=== PATIENT | male | born 1980 | race Caucasian/White ===

== ENCOUNTER 2022-02-09 23:33 | Emergency (ER) | payer SELFPAY ==
[~2022-02-09] VITALS: Ht 177.8 cm; Wt 118.0 kg
[2022-02-10] MEDS ORDERED: LORAZEPAM 1MG TABLET PO ONE (00:15)
[2022-02-10 04:30] VITALS: BP 141/62
[2022-02-10] MEDS ORDERED: OLAN10TA3 MT (15:42)
[2022-02-10] MEDS ORDERED: LISI10TA26 PO (15:42)
== END 2022-02-10 04:53 | disposition home or self-care (01) ==
LOC: ER 23:33
DX: F10.239 Alcohol dependence with withdrawal, unspecified (principal); Y90.9 Presence of alcohol in blood, level not specified; G40.909 Epilepsy, unspecified, not intractable, without status epilepticus; I10 Essential (primary) hypertension
CPT/HCPCS: 99283

== ENCOUNTER 2022-04-14 18:58 | Emergency (ER) | payer MEDICAID ==
[~2022-04-14] VITALS: Ht 177.8 cm; Wt 114.0 kg
[~2022-04-14 18:58] MED LIST: LISI10TA26 PO; OLAN10TA3 MT
[2022-04-14] MEDS ORDERED: SODIUM CHLORIDE 0.9% 1,000 ML IV ONE (21:30)
[2022-04-14] MEDS ORDERED: LORAZEPAM 1MG TABLET PO ONE (21:45)
[2022-04-14 21:58] LABS: BASOPHILS % 0.6 % (0.0-2.0); HEMATOCRIT. 38.6 % (42.0-52.0); HEMOGLOBIN. 12.9 g/dL (14.0-18.0); LYMPHOCYTES % 7.2 % (20.0-50.0); MEAN CORPUSCULAR HEMOGLOBIN 30.6 pg (28.0-32.0); MEAN CORPUSCULAR VOLUME 91.3 fL (80.0-94.0); MEAN PLATELET VOLUME 8.4 fl (7.4-10.4); MONOCYTES % 7.8 % (2.0-8.0); NEUTROPHILS % 84.4 % (40.0-76.0); PLATELET 233 x1000/uL (130-400); RED BLOOD CELL COUNT 4.22 mill/uL (4.7-6.1); RED CELL DISTRIBUTION WIDTH 16.5 % (11.6-14.6)
[2022-04-14 22:00] LABS: CHLORIDE 103 mEq/L (98-107)
[2022-04-14 22:09] LABS: ETHANOL BLOOD < 10 mg/dL
[2022-04-15] MEDS ORDERED: KETOROLAC 30MG/ML VIAL IM ONE (01:00)
[2022-04-15] MEDS ORDERED: LORAZEPAM 1MG TABLET PO ONE (01:00)
[2022-04-15 03:00] VITALS: BP 153/98
== END 2022-04-15 04:00 | disposition left against medical advice (07) ==
LOC: ER 18:58 → CANBEDREQ 04-15 05:25
DX: F10.239 Alcohol dependence with withdrawal, unspecified (principal); R53.1 Weakness; R10.84 Generalized abdominal pain; I10 Essential (primary) hypertension; R00.0 Tachycardia, unspecified; Y90.0 Blood alcohol level of less than 20 mg/100 ml; F12.90 Cannabis use, unspecified, uncomplicated; I25.10 Atherosclerotic heart disease of native coronary artery without angina pectoris; I25.2 Old myocardial infarction
CPT/HCPCS: 36415; 80053; 80320; 85025; 93005; 96372; 99285; J1885; J7030; G0480

== ENCOUNTER 2022-04-18 04:19 | Emergency (ER) | payer MEDICAID ==
[~2022-04-18] VITALS: Ht 165.1 cm; Wt 125.0 kg
[2022-04-18] MEDS ORDERED: DIAZEPAM 5 MG/ML 2ML CPJ IV ONE (05:30)
[2022-04-18] MEDS ORDERED: SODIUM CHLORIDE 0.9% 1,000 ML IV ONE (05:30)
[2022-04-18] MEDS ORDERED: DIAZEPAM 5 MG/ML 2ML CPJ IM ONE (06:00)
[2022-04-18 06:19] LABS: BASOPHILS % 0.7 % (0.0-2.0); EOSINOPHILS % 3.2 % (0.0-5.0); HEMATOCRIT. 36.9 % (42.0-52.0); LYMPHOCYTES % 17.8 % (20.0-50.0); MEAN CORPUSCULAR HEMOGLOBIN 30.7 pg (28.0-32.0); MEAN CORPUSCULAR VOLUME 94.4 fL (80.0-94.0); MEAN PLATELET VOLUME 8.2 fl (7.4-10.4); MONOCYTES % 10.1 % (2.0-8.0); NEUTROPHILS % 68.2 % (40.0-76.0); PLATELET 204 x1000/uL (130-400); RED CELL DISTRIBUTION WIDTH 16.6 % (11.6-14.6)
[2022-04-18 06:27] LABS: CHLORIDE 106 mEq/L (98-107)
[2022-04-18 06:34] LABS: ETHANOL BLOOD 27 mg/dL
[2022-04-18] MEDS ORDERED: L25 MT (08:28)
[2022-04-18 11:01] VITALS: BP 136/71
== END 2022-04-18 11:06 | disposition home or self-care (01) ==
LOC: ER 04:43
DX: F10.239 Alcohol dependence with withdrawal, unspecified (principal); Y90.1 Blood alcohol level of 20-39 mg/100 ml; I10 Essential (primary) hypertension; F12.10 Cannabis abuse, uncomplicated
CPT/HCPCS: 36415; 80053; 80320; 83690; 85025; 96360; 96361; 96372; 99283; J3360; J7030; G0480

== ENCOUNTER 2022-09-09 19:34 | Emergency (ER) | payer MEDICAID ==
[~2022-09-09] VITALS: Ht 172.7 cm; Wt 82.0 kg
[~2022-09-09 19:34] MED LIST changes: +L25 MT
[2022-09-09 19:49] VITALS: BP 130/82
[2022-09-09 23:15] LABS: BASOPHILS % 0.7 % (0.0-2.0); EOSINOPHILS % 3.8 % (0.0-5.0); HEMATOCRIT. 37.8 % (42.0-52.0); HEMOGLOBIN. 12.4 g/dL (14.0-18.0); LYMPHOCYTES % 28.3 % (20.0-50.0); MEAN CORPUSCULAR HEMOGLOBIN 30.5 pg (28.0-32.0); MEAN CORPUSCULAR VOLUME 93.1 fL (80.0-94.0); MEAN PLATELET VOLUME 7.8 fl (7.4-10.4); NEUTROPHILS % 57.2 % (40.0-76.0); PLATELET 176 x1000/uL (130-400); RED BLOOD CELL COUNT 4.06 mill/uL (4.7-6.1); RED CELL DISTRIBUTION WIDTH 17.1 % (11.6-14.6)
[2022-09-09 23:28] LABS: CHLORIDE 109 mEq/L (98-107)
[2022-09-09 23:35] LABS: ETHANOL BLOOD 105 mg/dL
== END 2022-09-10 05:09 | disposition home or self-care (01) ==
LOC: ER 19:34
DX: F10.229 Alcohol dependence with intoxication, unspecified (principal); Y90.5 Blood alcohol level of 100-119 mg/100 ml; U07.1 COVID-19; F12.10 Cannabis abuse, uncomplicated
CPT/HCPCS: 36415; 80053; 80320; 85025; 99283; G0480